=== PATIENT | female | born 1985 | race African-American/Black ===

== ENCOUNTER 2017-10-15 20:32 | Emergency (ER) | payer OTHER ==
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
== END 2017-10-15 22:06 ==
LOC: NAV ERS 20:32
DX: S16.1XXA Strain of muscle, fascia and tendon at neck level, initial encounter (principal); S29.012A Strain of muscle and tendon of back wall of thorax, initial encounter; V49.9XXA Car occupant (driver) (passenger) injured in unspecified traffic accident, initial encounter
CPT/HCPCS: 72040